=== PATIENT | male | born 1985 | race Caucasian/White ===

== ENCOUNTER 2017-10-28 05:17 | Emergency (ER) | payer OTHER ==
[2017-10-28] MEDS: HYDROCODONE/APAP (10/325) TAB PO (06:11)
== END 2017-10-28 07:46 | disposition home or self-care (01) ==
LOC: FTE 05:17
DX: S22.31XA Fracture of one rib, right side, initial encounter for closed fracture (principal); F17.210 Nicotine dependence, cigarettes, uncomplicated; W08.XXXA Fall from other furniture, initial encounter; Y92.9 Unspecified place or not applicable
CPT/HCPCS: 71100; 99283-25